=== PATIENT | male | born 1970 | race African-American/Black ===

== ENCOUNTER 2023-12-03 18:44 | Emergency (ER) | payer OTHER, MEDICAID ==
[~2023-12-03] VITALS: Ht 167.6 cm; Wt 63.5 kg
[2023-12-03 18:59] VITALS: BP_SYST 121; PULSE 77; RESP 15; TEMP 97.2; O2SAT 97
[2023-12-03 20:21] LABS: BASOPHILS % (AUTO) 0.5 % (0.0-2.0); EOSINOPHILS # (AUTO) 0.2 K/uL (0.0-0.4); EOSINOPHILS % (AUTO) 1.9 % (0.0-4.0); HEMATOCRIT 36.5 % (36-54); HEMOGLOBIN 12.1 g/dL (14.0-18.0); LYMPHOCYTES # (AUTO) 2.5 K/uL (1.0-5.5); LYMPHOCYTES % (AUTO) 27.3 % (20.5-51.5); MEAN CORPUSCULAR HEMOGLOBIN 28 pg (27-31); MEAN CORPUSCULAR HGB CONC 33 % (32-36); MEAN CORPUSCULAR VOLUME 85 fL (79.0-98.0); MONOCYTES % (AUTO) 11.1 % (1.7-9.3); NEUTROPHILS # (AUTO) 5.4 K/uL (1.8-7.7); NEUTROPHILS % (AUTO) 59.2 % (40.0-70.0); PLATELET COUNT (AUTO) 296 K/uL (130-430); RED BLOOD CELL COUNT(AUTO) 4.28 MIL/uL (4.2-6.2); RED CELL DISTRIBUTION WIDTH 15.1 % (9.0-15.0); WHITE BLOOD COUNT (AUTO) 9.1 K/uL (4.8-10.8)
[2023-12-03 20:38] LABS: PROTHROMBIN TIME 10.4 SECS (9.5-12.5)
[2023-12-03 20:52] LABS: ANION GAP 3 (5-15); CALCIUM 9.3 mg/dL (8.4-11.0); CARBON DIOXIDE 30 mmol/L (23-29); CHLORIDE 106 mmol/L (98-107); CREATININE 1.22 mg/dL (0.55-1.30); GFR AFRICAN AMERICAN 79 mL/min (>90); GLUCOSE 92 mg/dL (74-106); SODIUM SERUM 139 mmol/L (136-145); UREA NITROGEN, BLOOD 8 mg/dL (8-21)
[2023-12-03 20:53] LABS: ALCOHOL, BLOOD < 3 mg/dL (<10); GFR NON AFRICAN-AMERICAN 66 mL/min (>90)
[2023-12-03 23:18] VITALS: BP_SYST 127; PULSE 68; RESP 15; TEMP 97.2; O2SAT 97
== END 2023-12-03 23:18 | disposition home or self-care (01) ==
LOC: SED 18:44
DX: H61.21 Impacted cerumen, right ear (principal); R51.9 Headache, unspecified; R07.9 Chest pain, unspecified; R42 Dizziness and giddiness; F31.9 Bipolar disorder, unspecified; I10 Essential (primary) hypertension; Z88.8 Allergy status to other drugs, medicaments and biological substances
CPT/HCPCS: 99284; 70450; 71045; 80048; 85025; 85610; 84484; 36415; 93005; G0482; G0480